=== PATIENT | female | born 2000 | race Caucasian/White ===

== ENCOUNTER → 2021-06-14 | Outpatient (CLI) | payer MEDICAID ==
[2021-06-14 17:01] LABS: African American GFR (CKD) 126.8 (60.0-200.0); Blood Urea Nitrogen 8.8 mg/dL (9.0-27.0); HCG,Quantitative Serum <3.0 (0.0-6.0); Non-African American GFR(CKD) 109.4 (60.0-200.0); Potassium 4.4 mmol/L (3.5-5.5)
== END | disposition home or self-care (01) ==
LOC: LABWHC1 10:12
PROVIDERS: ATTEND Nurse Practitioner Family
DX: L70.0 Acne vulgaris (principal); L01.01 Non-bullous impetigo; L90.5 Scar conditions and fibrosis of skin
CPT/HCPCS: 36415; 82565; 84132; 84520; 84702